=== PATIENT | male | born 1945 | race Caucasian/White ===

== ENCOUNTER → 2016-09-02 | Day surgery (SDC) | payer MEDICARE, BC ==
[~2016-09-02] MED LIST: ASPI81TA45 PO; ATROPINE SULFATE 1% OPHT SOLN 2 ML BTL ONE; DEXAMETHASONE SOD PHOS 4 MG/ML VIAL ONE; EPINEPHrine HCL (1:1000) 1 MG/ML VIAL ONE; FLURBIPROFEN 0.03% OPHT SOLN 2.5 ML BTL ONE; HYALURONIDASE/LIDOCAINE/BUPIVACAINE 11 ML SYR TL ONE; LACTATED RINGER'S 1000 ML INJ 1,000 ML ONE; LORTA5 PO; MIDAZOLAM HCL 2 MG/2 ML VIAL ONE; NEOMYCIN/POLYMYXIN/DEXAMETHASONE OPTH OINT 3.5 GM TUBE ONE; NORC10TA2 PO; ONDANSETRON HCL 4 MG/2 ML VIAL IV PUSH ONE; PAXI20TA26 PO; PHENYLEPHRINE HCL 2.5 % OPTH SOLN 15 ML BTL ONE; PROPOFOL 200 MG/20 ML AMP IV ONE; SODIUM CHLORIDE 0.9% INJ 10 ML ONE; TETRACAINE 0.5% OPTH SOLN 15 ML BTL ONE; TROPICAMIDE 1% OPHT SOLN 15 ML BTL ONE; ceFAZolin INJ 1,000 MG VIAL ONE
--- NOTE | 2016-09-11 14:03 | MP ---
cc: ALEXANDER PAYTON MD DATE OF SURGERY 09/07/2016 PREOPERATIVE DIAGNOSIS Epiretinal membrane left eye POSTOPERATIVE DIAGNOSIS Epiretinal membrane left eye PROCEDURE Pars plana vitrectomy, membrane peeling left eye. ANESTHESIA MAC SURGEON Yoel Payton MD COMPLICATIONS None PROCEDURE IN DETAIL After informed consent was obtained, the patient was brought to the operating room, placed under brief anesthesia with Propofol. 10 cc of 50/50 mixture of 0.75% Marcaine 2% Lidocaine was placed in a modified Van Lint lid block as well as peribulbar injection. The patient was then prepared and draped in usual sterile fashion. A wide lid speculum was placed in the patient's left eye. A 23-gauge vitrectomy cannulas were then placed in the lower temporal, superotemporal and superonasal quadrants 3 mm posterior to the cornea scleral limbus. Infusion cannula was placed lower temporally. A core vitrectomy was then performed. The vitrectomy is carried out as far as possible to vitreous space. Attention was then turned to the posterior pole where there was an epiretinal membrane covering the surface of the macula. It was carefully peeled off the macula with intraocular forceps. The same was then done for the internal limiting membrane. Careful indirect ophthalmoscopy with scleral depression was then performed and no peripheral retinal breaks were noted. The three vitrectomy cannulas were then removed. Subconjunctival injections of dexamethasone and Ancef were placed. An Atropine drop, Maxitrol ointment and a patch shield were then applied. The patient tolerated the procedure well. There were no complications. He will follow up tomorrow in our [facility] office. Alexander Payton MD TAB/DJL /9:30 AM /2:01 PM MTDKristin
== END | disposition home or self-care (01) ==
LOC: ESDC 11:25
PROVIDERS: ATTEND Ophthalmology Retina Specialist
DX: H35.372 Puckering of macula, left eye (principal)
CPT/HCPCS: 00145; 67041; J0171; J0690; J1100; J2250; J2405; J3010; J7120

== ENCOUNTER → 2017-03-12 | Outpatient (CLI) | payer MEDICARE, BC ==
[~2017-03-12] MED LIST changes: +ASPI-110 PO; -ATROPINE SULFATE 1% OPHT SOLN 2 ML BTL ONE; -DEXAMETHASONE SOD PHOS 4 MG/ML VIAL ONE; -EPINEPHrine HCL (1:1000) 1 MG/ML VIAL ONE; +FENT100D T-DERMAL; -FLURBIPROFEN 0.03% OPHT SOLN 2.5 ML BTL ONE; -HYALURONIDASE/LIDOCAINE/BUPIVACAINE 11 ML SYR TL ONE; -LACTATED RINGER'S 1000 ML INJ 1,000 ML ONE; -MIDAZOLAM HCL 2 MG/2 ML VIAL ONE; -NEOMYCIN/POLYMYXIN/DEXAMETHASONE OPTH OINT 3.5 GM TUBE ONE; +NORT25CA PO; +NORT50CA PO; -ONDANSETRON HCL 4 MG/2 ML VIAL IV PUSH ONE; +PERC10TA27 PO; -PHENYLEPHRINE HCL 2.5 % OPTH SOLN 15 ML BTL ONE; -PROPOFOL 200 MG/20 ML AMP IV ONE; +SACC1CAP3 PO; -SODIUM CHLORIDE 0.9% INJ 10 ML ONE; -TETRACAINE 0.5% OPTH SOLN 15 ML BTL ONE; -TROPICAMIDE 1% OPHT SOLN 15 ML BTL ONE; -ceFAZolin INJ 1,000 MG VIAL ONE
[2017-03-12 13:18] LABS: HEMATOCRIT 37.3 % (39.0-51.0); MEAN CELL VOLUME 90.9 FL (80.0-100.0); MEAN CORPUSCULAR HEMOGLOBIN 31.2 PG (27.0-34.0); MEAN CORPUSCULAR HGB CONC 34.3 % (32.0-36.0); PLATELET COUNT 219 TH/MM3 (150-450); RED CELL DISTRIBUTION WIDTH 13.6 % (11.6-17.2); REVIEW FLAG FINAL; WHITE BLOOD COUNT 7.5 TH/MM3 (4.0-11.0)
== END ==
LOC: CPRE 11:54
PROVIDERS: ATTEND Specialist
DX: Z01.812 Encounter for preprocedural laboratory examination (principal); J32.9 Chronic sinusitis, unspecified
CPT/HCPCS: 36415; 85027

== ENCOUNTER → 2017-03-13 | Day surgery (SDC) | payer MEDICARE, BC ==
--- NOTE | 2017-03-12 17:05 | MH ---
cc: RAY VAZQUEZ DATE OF ADMISSION 03/13/2017 REASON FOR ADMISSION A 71-year-old gentleman with nasal obstruction and nasal lesion for open septal reconstruction, turbinectomies, antrostomy and nasal biopsy. PAST MEDICAL HISTORY Unremarkable. PAST SURGICAL HISTORY Unremarkable. REVIEW OF SYSTEMS Unremarkable. FAMILY HISTORY AND SOCIAL HISTORY Unremarkable. PHYSICAL EXAMINATION GENERAL: A Well-appearing patient no acute distress noted. HEENT: Exam reveals septal deviation, turbinate hypertrophy, mucopurulent crusting and a nasal lesion on the left side. Lungs: Clear. HEART: Regular rate and rhythm. ABDOMEN: Soft and nontender. EXTREMITIES: Without cyanosis, clubbing or edema. NEUROLOGIC: Alert, oriented, nonfocal neurologic exam. IMPRESSION Patient with significant septal deviation and nasal obstruction for nasal surgery. The patient instructed in method of surgery and possible complication including anesthetic complications, cardiac difficulty, pulmonary difficulty, stroke, or even . Surgical complications bleeding, infection, risk of transfusion, velopharyngeal insufficiency, nasal bleeding, packing requirement. The patient appeared to agree, accept and understand the above-mentioned risks and benefits. In addition no guarantees or warranties regarding outcome were given. We will therefore proceed with surgery. MD OCTAVIO Marie/CARLA /4:51 PM /4:57 PM
[~2017-03-13] VITALS: Ht 180.3 cm; Wt 84.0 kg
[~2017-03-13] MED LIST changes: +ACETAMINOPHEN 1000 MG/100 ML VIAL IV ONE; +ACETAMINOPHEN/HYDROcodone 325 MG/7.5 MG TAB PO PRN; -ASPI81TA45 PO; +CHLORHEXIDINE GLUCONATE 2 % 1 PACK (2 CLOTHS) TOPICAL PRN; +DO NOT ADM ANY ANTICOAGULANT DRUGS PRN; +EPINEPHrine HCL (1:1000) 30 MG/30 ML VIAL ONE; +FAMOTIDINE 20 MG/2 ML VIAL ONE; +INSULIN HUMAN REGULAR 1,000 UNITS/10 ML VIAL SQ PRN; +LACTATED RINGER'S 1000 ML INJ 1,000 ML IV ONE; +LACTATED RINGER'S 1000 ML IV PRN; +LIDOCAINE 1%/EPINEPHrine 1:100,000 SOLN 20 ML VIAL ONE; -LORTA5 PO; +METOPROLOL TARTRATE 25 MG TAB PO PRN; +MIDAZOLAM HCL 2 MG/2 ML VIAL ONE; +MORPHINE SULFATE 4 MG/ML INJ IV PUSH PRN; -NORC10TA2 PO; +ONDANSETRON HCL 4 MG/2 ML VIAL IV PUSH ONE; +ONDANSETRON HCL 4 MG/2 ML VIAL IV PUSH PRN; -PAXI20TA26 PO; +POVIDONE IODINE 5% (ANTISEPSIS KIT) 4 APPLICATIONS EACH NARE PRN; +PROPOFOL 200 MG/20 ML AMP IV ONE; +SODIUM CHLORID 0.9% 500 ML IV PRN
[2017-03-13 07:40] VITALS: BP 117/71; PULSE 77; RESP 18; TEMP 99; O2SAT 99
[2017-03-13 12:20] VITALS: BP 125/69; PULSE 62; RESP 20; TEMP 97.5; O2SAT 96
--- NOTE | 2017-03-17 07:26 | MP ---
cc: RAY VAZQUEZ DATE OF SURGERY: 03/13/2017. PREOPERATIVE DIAGNOSIS: 1. Nasal obstruction. 2. Nasal lesion. 3. Chronic sinusitis. OPERATIVE PROCEDURE PERFORMED: Open septal reconstruction, bilateral inferior turbinectomy, submucous resection, bilateral endoscopic maxillary antrostomy. SURGEON: Ray Vazquez MD ANESTHESIA: General anesthesia ESTIMATED BLOOD LOSS: Minimal. COMPLICATIONS: No complications. DESCRIPTION OF THE PROCEDURE IN DETAIL: Prepped, draped usual fashion. 1% Xylocaine 1:100,000 epinephrine injected into nasal septum, inferior turbinates, middle meatus bilaterally. 1:1000 adrenaline soaked pledgets placed and then removed. Once this was achieved, a mucoperichondrial incision was made on the right side of the nose. Mucoperichondrial flap elevated. A significant amount of bone and cartilage removed to improve the nasal airway. A small nasal lesion, apparently a granuloma, was noted on the nasal septum on the left side and this was biopsied with a cup forceps. Bone and cartilage and soft tissue removed from the intercartilaginous incision to improve the nasal airway and to reduce the nasal fracture. The mucoperichondrial flap was then reapproximated. Using the endoscope, the natural antrostomy was identified and enlarged left side with curved suction and identified enlarged right side with suction. Significant amount of turbinate hypertrophy was electrodesiccated with the Coblator probe. The patient tolerated procedure well. Ray Vazquez MD [facility]/JC /10:40 AM /7:18 AM
== END | disposition home or self-care (01) ==
LOC: HSDC 06:31
PROVIDERS: ATTEND Specialist
DX: J34.89 Other specified disorders of nose and nasal sinuses (principal); L57.0 Actinic keratosis; J34.2 Deviated nasal septum; J32.9 Chronic sinusitis, unspecified
CPT/HCPCS: 00160; 30130; 30520; 31256; 88305; J0131; J0171; J2250; J2405; J3010; J7120